=== PATIENT | male | born 1955 | race Caucasian/White ===

== ENCOUNTER 2024-10-08 13:21 | Inpatient (IN) | payer OTHER, MEDICARE ==
[~2024-10-08] VITALS: Ht 185.4 cm; Wt 140.0 kg
[2024-10-08] MEDS: DEXTROSE 50% SYRINGE 50 ML IV ONE (13:44)
--- NOTE | 2024-10-08 13:46 | ED.PDOC ---
Altered Mental Status HPI Comments 69 y.o male with PMH of liver cirrhosis, liver cancer and HTN, presents to the ED via EMS for an evaluation of altered mental status x 1 day. EMS reports family on scene reported patient has been weak/lethargic for one day, has had extreme difficulty ambulating, becomes short of breath with minimal exertion, and appears to be confused and slow to respond. His normal baseline is alert and oriented x 4 and ambulatory with walker. EMS reports patient was initially alert and oriented x 3 on their initial evaluation, however patient is unable to answer any questions at this time. EMS noted a blood glucose level of 56 on scene, administrated D10 but continued to drop with the lowest reading at 45 prior to ED arrival. Patient continues to receive D10 and blood glucose at bedside increased to 100. On scene, patient was also hypotensive at 72 systolic, was given IV fluids. Chief Complaint: ALOC Time Seen by MD: 13:31 Reviewed Notes: Nurses Notes, Compliance Examiner Notes, Medications, Allergies Allergies: Coded Allergies: NO KNOWN ALLERGIES (Unverified , 10/08/24) Information Source: Emergency Med Personnel Mode of Arrival: EMS Severity: Other Timing: Days (1) Duration: Since onset Prehospital treatment: 12 Lead EKG, Accucheck (56 and 45 ), Life Enrichment Manager, IVF, Treatment (D10 ) Quality: Decreased Alertness, Change in Behavior Recent: Other History of: Other Associated Signs and Symptoms: Other Past Medical History PAST MEDICAL HISTORY: HTN, Liver Past Medical History (Other): Liver CA Surgical History: Unobtainable Family History Family History: Unobtainable Social History Smoker: Non-Smoker Alcohol: Denies ETOH Use Drugs: Denies Drug Use Lives In: Home Unable to Obtain due to: Altered Mental Status Physical Exam General Appearance: Moderate Distress HEENT: Normal ENT Inspection, PERRL/EOMI Neck: Full Range of Motion, Normal Inspection, Supple Respiratory: Decreased Breath Sounds, Respiratory Distress Cardiovascular: Irregular, No JVD Breast Exam: Deferred Gastrointestinal: Non Tender, Soft Genitalia: Deferred Pelvic: Deferred Rectal: Deferred Extremities: Leg edema, Non-tender, Pedal edema Neurologic: Alert (Oriented x1), Other (Lethargic, no facial asymmetry, moves all extremities) Cerebellar Function: NOT DONE Reflexes: NOT DONE Skin: Dry, Pallor, Warm Lymphatic: NOT DONE EKG EKG : Comments AFib/flutter with underlying ventricular rate 90, QRS prolonged at 221, QTC prolonged at 672, left axis deviation, possible old inferior infarct, anteroseptal T inversion with other nonspecific T changes Was a procedure done? 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: Attending Physician Indication: Hypotension Room prepared for procedure: Yes National Service Officer performed hand hygien: Yes Maximal sterile barrier precau: Sterile gown, Sterlie gloves, Large sterlie drape Skin Preparation: Chlorhexidine gluconate Skin preparation completely dr: Yes Insertion site: Right, Femoral Central line catheter type: [id number] dialysis Number of lumens: 3 Central line exchanged over a: Yes Antiseptic ointment applied to: No Post Assessment: Proper placement Informed consent obtained: No (Procedure was emergent) Risks/benefits/alt described: No Intubation Indication: Respiratory Insufficiency, Altered Mental Status, Airway Protection Prep: Preoxygenation Pretreated with: Sedation (Etomidate IV) Medicated with: Succinylcholine (100mg), Other (Etomidate 20mg ) Intubation Approach: Orotracheal Intubation size: cm (Size 8 endotracheal tube secured at 24 cm at the lip) Informed consent obtained: No (Procedure was emergent) Risks/benefits/alt described: No (Emergent ) Differential Diagnosis (ALOC) Differential Diagnosis: Dehydration, Hypoglycemia, Encephalopathy, Hypoxemia, CVA, Mass Lesion, SAH, Drug Overdose, ETOH Intoxication, Heart Failure, Renal Failure, Other (Infection, sepsis, among others) X-Ray, Labs, Meds, VS Vital Signs Date Time Temp Pulse Resp B/P (MAP) Pulse Ox O2 Delivery O2 Flow Rate FiO2 10/08/24 21:45 80/46 10/08/24 21:15 93.4 62 17 74/40 (51) 97 93.4 10/08/24 21:10 93.2 61 16 76/37 (50) 97 93.2 10/08/24 21:05 93.2 61 17 79/36 (50) 98 93.2 10/08/24 21:00 92.3 72 13 75/39 (51) 98 92.3 10/08/24 20:55 93.2 62 16 75/38 (50) 98 93.2 10/08/24 20:55 93.2 62 16 75/38 (50) 98 93.2 10/08/24 20:50 93.2 68 15 77/40 (52) 97 93.2 10/08/24 20:46 75/42 10/08/24 20:45 93.0 62 15 73/41 (52) 93 93.0 10/08/24 20:40 93.0 15 73/41 (52) 93 93.0 10/08/24 20:35 93.0 16 71/41 (51) 93 93.0 10/08/24 20:30 93.0 16 70/39 (49) 93 93.0 10/08/24 20:30 70/39 10/08/24 20:25 92.8 16 66/37 (47) 93 92.8 10/08/24 20:20 92.8 65 15 72/40 (51) 93 92.8 10/08/24 20:15 92.3 17 71/39 (50) 93 92.3 10/08/24 20:10 92.7 65 16 67/40 (49) 92 92.7 10/08/24 20:05 92.7 66 16 67/39 (48) 92 92.7 10/08/24 20:02 68/95 10/08/24 20:00 64 10/08/24 20:00 92.7 64 16 68/35 (46) 89 92.7 10/08/24 19:55 92.7 63 16 69/36 (47) 90 92.7 10/08/24 19:50 92.7 62 16 66/38 (47) 82 92.7 10/08/24 19:49 60 16 82 100 10/08/24 19:45 92.7 97 16 70/29 (43) 97 92.7 10/08/24 19:40 92.7 62 83 68/39 (49) 83 92.7 10/08/24 19:35 92.5 60 16 66/34 (45) 82 92.5 10/08/24 19:35 68/36 10/08/24 19:33 68/34 10/08/24 19:30 92.5 59 68/36 (47) 78 92.5 10/08/24 19:25 92.5 59 66/37 (47) 75 92.5 10/08/24 19:20 92.5 58 66/37 (47) 77 92.5 10/08/24 19:18 75/37 10/08/24 19:15 92.5 75/37 (50) 92.5 10/08/24 19:15 75/40 10/08/24 19:10 92.3 104 16 75/40 (52) 92.3 10/08/24 19:08 68/40 10/08/24 19:05 92.3 60 16 68/40 (49) 92.3 10/08/24 19:00 92.3 59 16 77/36 (50) 92.3 10/08/24 18:55 92.3 62 16 75/37 (50) 92.3 10/08/24 18:40 92.3 128 16 86/43 (57) 92.3 10/08/24 18:35 78/40 10/08/24 18:33 78/40 10/08/24 18:30 80/44 10/08/24 18:25 92.3 150 16 75/32 (46) 92.3 10/08/24 18:25 75/32 10/08/24 18:20 84/42 10/08/24 18:18 87/43 10/08/24 18:15 87/43 10/08/24 18:10 92.3 122 16 95/48 (64) 92.3 10/08/24 18:08 92/40 10/08/24 18:08 92/40 10/08/24 18:01 62 16 66/38 (47) 79 100 10/08/24 17:58 68/38 10/08/24 17:55 68/38 10/08/24 17:55 92.3 16 68/38 (48) 92.3 10/08/24 17:50 68/38 10/08/24 17:48 58/40 10/08/24 17:40 92.3 46 16 58/40 (46) 83 92.3 10/08/24 17:40 58/40 10/08/24 17:38 86/42 10/08/24 17:38 86/42 11/9/24 17:38 86/42 10/08/24 17:38 86/42 10/08/24 17:36 0/0 10/08/24 17:36 0/0 10/08/24 17:36 0/0 10/08/24 17:36 0/0 10/08/24 17:28 97/43 10/08/24 17:25 92/42 10/08/24 17:25 92.3 62 16 92/42 (59) 88 92.3 10/08/24 17:15 89/41 10/08/24 17:10 92.5 64 16 84/34 (51) 89 92.5 10/08/24 17:10 84/34 10/08/24 17:10 84/34 10/08/24 16:55 70 16 103/46 (65) 90 10/08/24 16:50 106/47 10/08/24 16:40 87/42 10/08/24 16:40 76 18 87/42 (57) 91 10/08/24 16:30 74/41 10/08/24 16:25 56 18 74/41 (52) 92 10/08/24 16:25 99/44 10/08/24 16:20 74/41 10/08/24 16:15 89/42 10/08/24 16:10 63 17 88/47 (61) 92 10/08/24 16:10 88/47 10/08/24 16:10 89/42 10/08/24 16:02 92/37 10/08/24 15:55 55 17 91 10/08/24 15:50 87/39 10/08/24 15:40 89/66 10/08/24 15:40 68 18 89/66 (74) 92 10/08/24 15:35 75/46 10/08/24 15:30 76/29 10/08/24 15:25 47 18 92/47 (62) 92 10/08/24 15:25 92/47 10/08/24 15:25 92/47 10/08/24 15:23 65 20 98/65 97 50 10/08/24 15:15 101/44 10/08/24 15:14 65 20 95/48 (64) 97 50 10/08/24 15:10 76 23 106/49 (68) 92 10/08/24 15:05 105/41 10/08/24 14:55 105/52 10/08/24 14:55 73 14 105/52 (69) 96 10/08/24 14:45 92/46 10/08/24 14:45 92/46 10/08/24 14:40 55 25 89/41 (57) 94 10/08/24 14:25 77 22 92 10/08/24 14:18 90 10/08/24 14:10 64 20 98/48 (65) 92 10/08/24 13:55 55 12 95 Room Air* 0 21 10/08/24 13:55 55 12 95/48 (64) 95 10/08/24 13:30 97.2 63 24 91/51 (64) 91 10/08/24 13:28 132 Lab Test 10/08/24 22:04 10/08/24 18:20 10/08/24 17:35 10/08/24 17:19 Range/Units White Blood Count Pending Red Blood Count Pending Hemoglobin Pending Hematocrit Pending Mean Corpuscular Volume Pending Mean Corpuscular Hemoglobin Pending Mean Corpuscular Hemoglobin Concent Pending Red Cell Distribution Width Pending Platelet Count Pending Mean Platelet Volume Pending Neutrophils (%) (Auto) Pending Lymphocytes (%) (Auto) Pending Monocytes (%) (Auto) Pending Basophils (%) (Auto) Pending Neutrophils # (Auto) Pending Lymphocytes # (Auto) Pending Monocytes # (Auto) Pending Sodium Level Pending Potassium Level Pending Chloride Level Pending Carbon Dioxide Level Pending Anion Gap Pending Blood Urea Nitrogen Pending Creatinine Pending Glomerular Filtration Rate Calc Pending BUN/Creatinine Ratio Pending Serum Glucose Pending Calcium Level Pending Total Bilirubin Pending Aspartate Amino Transferase (AST) Pending Alanine Aminotransferase (ALT) Pending Alkaline Phosphatase Pending Total Protein Pending Albumin Pending Lactic Acid Level 11.4 *H 0.4-2.0 mmol/L POC Glucose 105 70-106 mg/dl Troponin I High Sensitivity 71 *H </=54 ng/L Test 10/08/24 16:59 10/08/24 16:50 10/08/24 16:30 10/08/24 16:09 Range/Units Urine Color Dark-yellow Yellow Urine Clarity Turbid H Clear Urine pH 5.0 5.0-9.0 Urine Specific [place] 1.024 1.001-1.035 Urine Protein 2+ H Negative Urine Ketones Negative Negative Urine Blood 3+ H Negative /uL Urine Nitrite Negative Negative Urine Bilirubin Negative Negative Urine Urobilinogen Normal Negative mg/dL Urine Leukocyte Esterase Negative Negative /uL Urine RBC 69 0 - 3 /hpf Urine WBC 7 0 - 3 /hpf Urine Squamous Epithelial Cells Few <5 /hpf Urine Amorphous Crystals Few None Seen /hpf Urine Bacteria None seen None Seen /hpf Urine Glucose Trace Normal mg/dL Urine Opiates Screen Neg NEGATIVE Urine Fentanyl Screen Neg NEGATIVE Urine Barbiturates Screen Neg NEGATIVE Urine Phencyclidine Screen Neg NEGATIVE Urine Amphetamines Screen Neg NEGATIVE Urine Benzodiazepines Screen Neg NEGATIVE Urine Cocaine Screen Neg NEGATIVE Urine Cannabinoids Screen Neg NEGATIVE POC Glucose 77 70-106 mg/dl Blood Gas Specimen Type Arterial Blood Gas Sample Site Left radial Blood Gas Patient Temperature 37.0 Arterial Blood Date Drawn [id number] Arterial Blood pH 6.901 *L 7.350-7.450 Arterial Blood Partial Pressure CO2 32.7 L 35.0-48.0 mmHg Arterial Blood Partial Pressure O2 93.6 83.0-108.0 mmHg Arterial Blood HCO3 6.3 L 21.0-28.0 mmol/L Arterial Blood Oxygen Saturation 88.3 L 94.0-98.0 % Arterial Blood Base Excess -25.5 L -2.0-3.0 mmol/L Arterial Blood Oxyhemoglobin 87.3 L 94.0-98.0 % Arterial Blood Carboxyhemoglobin 0.7 0.5-1.5 % Arterial Blood Methemoglobin 0.4 0.0-1.5 % Timur Test Modified Blood Gas Total Hemoglobin 10.80 L 13.5-17.5 g/dL Blood Gas Set Respiration Rate 16.0 Blood Gas Modality Vent - ac FiO2 % 50.0 Blood Gas Tidal Volume 600.0 Blood Gas PEEP or CPAP 5.0 Blood Gas Critical Value Read Back Yes Blood Gas Notified Whom Blood Gas Notified Time [id number] Blood Gas Notified By Repairer [employer] abel Sodium Level 135 L 136-145 mmol/L Potassium Level 7.7 *H 3.5-5.1 mmol/L Chloride Level 101 98-107 mmol/L Carbon Dioxide Level < 10 *L 20-31 mmol/L Anion Gap 24.69220 H 5-15 Blood Urea Nitrogen 111 *H 9-23 mg/dL Creatinine 9.04 H 0.700-1.30 mg/dL Glomerular Filtration Rate Calc 6 >90 mL/min BUN/Creatinine Ratio 12.3 10.0-20.0 Serum Glucose 80 74-106 mg/dL Lactic Acid Level 9.2 *H 0.4-2.0 mmol/L Calcium Level 8.8 8.7-10.4 mg/dL Total Bilirubin 3.6 H 0.2-1.0 mg/dL Aspartate Amino Transferase (AST) 2007 H 13-40 U/L Alanine Aminotransferase (ALT) 553 H 7-40 U/L Alkaline Phosphatase 102 46-116 U/L Troponin I High Sensitivity 54 </=54 ng/L Total Protein 8.3 H 5.7-8.2 g/dL Albumin 3.5 3.2-4.8 g/dL Plasma/Serum Blood Alcohol < 3.0 <10 mg/dL Test 10/08/24 14:17 10/08/24 14:14 10/08/24 13:38 10/08/24 13:29 Range/Units POC Glucose 29 *L 100 33 *L 70-106 mg/dl White Blood Count 3.5 L 4.4-10.8 10^3/uL Red Blood Count 3.29 L 4.5-5.90 10^6/uL Hemoglobin 9.4 L 13.5-17.5 g/dL Hematocrit 30.5 L 41.0-53.0 % Mean Corpuscular Volume 92.6 80.0-100.0 fL Mean Corpuscular Hemoglobin 28.6 28.0-32.0 pg Mean Corpuscular Hemoglobin Concent 30.9 L 32.0-36.0 g/dL Red Cell Distribution Width 25.3 H 11.8-14.3 % Platelet Count 103 L 140-450 10^3/uL Mean Platelet Volume 7.9 6.9-10.8 fL Neutrophils (%) (Auto) 37.0-80.0 % Lymphocytes (%) (Auto) 10.0-50.0 % Monocytes (%) (Auto) 0.0-12.0 % Basophils (%) (Auto) 0.0-2.0 % Neutrophils # (Auto) 1.6-8.6 10 ^3/uL Lymphocytes # (Auto) 0.4-5.4 10 ^3/uL Monocytes # (Auto) 0-1.3 10 ^3/uL Differential Total Cells Counted 100.0 100 Neutrophils % (Manual) 65 37.0-80.0 Band Neutrophils % (Manual) 10 Lymphocytes % (Manual) 19 10.0-50.0 Monocytes % (Manual) 6 0-12 Eosinophils % (Manual) 0 0-7 Basophils % (Manual) 0 0.0-2.0 Metamyelocytes % (manual) 0 Myelocytes % (Manual) 0 Promyelocytes % (Manual) 0 Blast Cells % (Manual) 0 Reactive Lymphocytes 0 Platelet Estimate Decreased Anisocytosis (manual) Slight Prothrombin Time 19.3 H 9.3-11.8 sec Prothrombin Time INR 1.91 H 0.9-1.15 Ammonia < 10 L 11-32 umol/L Troponin I High Sensitivity 51 </=54 ng/L B-Type Natriuretic Peptide 609.74 0-100 pg/mL Test 10/08/24 13:28 Range/Units POC Glucose 45 *L 70-106 mg/dl Current Medications Medications (Trade) Dose Ordered Sig/Kaley Route Start Time Stop Time Status Last Admin Albumin Human 100 ml @ 100 mls/hr ONCE ONCE IV 10/08/24 13:45 10/08/24 14:44 DC 10/08/24 14:12 Dextrose 250 ml @ 1,000 mls/hr ONCE ONCE IV 10/08/24 14:30 10/08/24 15:20 DC 10/08/24 16:21 Succinylcholine Chloride (Quelicin) 100 mg ONCE ONCE IV 10/08/24 14:45 10/08/24 14:46 DC 10/08/24 14:39 Etomidate 30 mg ONCE ONCE IV 10/08/24 14:45 10/08/24 14:46 DC 10/08/24 14:38 Dopamine HCl/ Dextrose 250 ml @ 21.375 mls/ hr [id number] ONCE IV 10/08/24 14:45 10/09/24 02:26 10/08/24 18:33 Propofol 100 ml @ 4.2 mls/hr [id number] IV 10/08/24 15:30 10/08/24 17:28 Dextrose 50 ml ONCE ONCE IV 10/08/24 15:30 10/08/24 15:31 DC 10/08/24 14:20 Midazolam HCl 50 ml @ 1 mls/hr Q24H IV 10/08/24 16:00 10/08/24 16:10 Norepinephrine Bitartrate 250 ml @ 3.75 mls/hr Q24H IV 10/08/24 16:00 10/08/24 20:30 Insulin Human Regular (InsuLIN R) 10 units ONCE ONCE IV 10/08/24 17:15 10/08/24 17:21 DC 10/08/24 18:06 Dextrose 50 ml ONCE ONCE IV 10/08/24 17:15 10/08/24 17:21 DC 10/08/24 17:59 Sodium Bicarbonate 100 ml ONCE ONCE IV 10/08/24 17:15 10/08/24 17:21 DC 10/08/24 17:54 Albuterol (Ventolin Medneb) 20 mg ONCE ONCE NEB 10/08/24 17:15 10/08/24 17:21 DC 10/08/24 18:01 Vancomycin HCl 200 ml @ 200 mls/hr ONCE ONCE IV 10/08/24 17:30 10/08/24 18:29 DC 10/08/24 18:11 Zirconium Oxide (Lokelma) 20 gm ONCE ONCE GT 10/08/24 17:30 10/08/24 17:31 DC 10/08/24 20:45 Phenylephrine HCl 250 ml @ 30 mls/hr Q8H20M IV 10/08/24 19:00 10/08/24 19:08 Sodium Chloride (Saline Lock Ns) 10 ml QSHIFT@10,22 IV 10/08/24 22:00 10/08/24 21:50 Epinephrine HCl 250 ml @ 7.5 mls/hr Q24H ONCE IV 10/08/24 19:30 10/09/24 19:29 10/08/24 20:02 Vasopressin 20 units/Sodium Chloride 100 ml @ 9 mls/hr Q11H7M IV 10/08/24 20:30 10/08/24 20:46 Sodium Bicarbonate 100 ml ONCE ONCE IV 10/08/24 20:30 10/08/24 20:31 DC 10/08/24 20:44 PROCEDURE(s): HWOCT - HEAD WITHOUT CONTRAST REASON: al ORDER NUMBER(s): [id number], ACCESSION NUMBER(s): [id number] EXAM: CT HEAD WITHOUT CONTRAST INDICATION: aloc TECHNIQUE: CT of the head without intravenous contrast. Radiation Dose Information: CT Dose: CTDI volume is 91.56 mGy. Dose-length product is 2475.87 mGy*cm The dose indicators for CT are the volume Computed Tomography (CT) Dose Index (CTDIvol) and the Dose Length Product (DLP), and are measured in units of mGy and mGy-cm, respectively. These indicators are not patient dose, but values generated from the CT scanner acquisition factors. The report includes radiation exposure data for exposures received during this examination. COMPARISON: None FINDINGS: There is no evidence of acute intracranial hemorrhage, extra-axial collection, mass effect, midline shift, herniation or hydrocephalus. There is mild sulcal and ventricular prominence. The giraldo-white differentiation is intact. Patchy periventricular and subcortical white matter hypoattenuation is nonspe cific but may be related to small vessel ischemic disease. The visualized paranasal sinuses are clear. Trace left mastoid effusion is noted. The surrounding soft tissues and osseous structures are unremarkable. IMPRESSION: 1. No acute intracranial abnormality. 2. Mild cerebral atrophy. EDURE(s): CXRP - CHEST PORTABLE REASON: aloc ORDER NUMBER(s): [id number], ACCESSION NUMBER(s): [id number] EXAM: XY CHEST PORTABLE TECHNIQUE: Single frontal chest radiograph CLINICAL HISTORY: aloc COMPARISON: None Findings/Impression: Frontal chest radiograph demonstrates no acute osseous or superficial soft tissue abnormalities. The trachea is midline. Borderline cardiomegaly. Multifocal patchy airspace opacities favored to reflect multifocal pneumonia. Recommend follow up to resolution. No pneumothorax or pleural effusions. EDURE(s): CXR2 - CHEST TWO VIEWS ROUTINE REASON: OG PLACEMENT ORDER NUMBER(s): [id number], ACCESSION NUMBER(s): [id number] XY CHEST TWO VIEWS ROUTINE, HISTORY: OG PLACEMENT COMPARISON: 10/08 None TECHNICAL DATA: 1 view of the chest was obtained. FINDINGS: Lines and tubes: ET in the mid thoracic trachea, OG in the stomach. Right arm PICC with tip in the RA. Cardiomediastinal silhouette: enlarged Pulmonary vasculature: prominent Lung expansion: low Lung airspace: multifocal patchy airspace opacities Lung interstitium: prominent Pleura: normal Pneumothorax: no Bones: Unremarkable Other: no IMPRESSION: ET in the mid thoracic trachea, OG in the stomach. Right arm PICC with tip in the RA. Similar lung aeration with multifocal patchy airspace opacities. EDURE(s): CXRP - CHEST PORTABLE REASON: S/P PICC LINE PLACEMENT, NG TUBE PLACEMENT, INTUBATION ORDER NUMBER(s): [id number], ACCESSION NUMBER(s): [id number] XY CHEST PORTABLE, HISTORY: S/P PICC LINE PLACEMENT, NG TUBE PLACEMENT, INTUBATION COMPARISON: XY CHEST PORTABLE on DOS: 10/08/24 XY CHEST PORTABLE on DOS: 10/08/24 TECHNICAL DATA: 1 view of the chest was obtained. FINDINGS: Lines and tubes: ET in the mid thoracic trachea, NG in the stomach. Right arm PICC with tip in the RA. Cardiomediastinal silhouette: enlarged Pulmonary vasculature: prominent Lung expansion: low Lung airspace: multifocal patchy airspace opacities Lung interstitium: prominent Pleura: normal Pneumothorax: no Bones: Unremarkable Other: no IMPRESSION: ET in the mid thoracic trachea, NG in the stomach. Right arm PICC with tip in the RA. Similar lung aeration with multifocal patchy airspace opacities. X-Ray, Labs, Meds, VS Comment 69-year-old male with a history of liver cirrhosis, liver CA and hypertension presenting with altered mental status, hypoglycemia, respiratory distress and hypotension. Vitals remarkable for BP 68/34, oxygen saturation 82% on 100% oxygen by mask Exam remarkable for confusion, lethargy, respiratory distress, diminished breath sounds and 2+ pitting edema in both lower extremities EKG AFib/flutter with ventricular rate of 90, prolonged intervals, anteroseptal T inversion with other nonspecific T changes Head CT unremarkable Chest x-ray Findings/Impression: Frontal chest radiograph demonstrates no acute osseous or superficial soft tissue abnormalities. The trachea is midline. Borderline cardiomegaly. Multifocal patchy airspace opacities favored to reflect multifocal pneumonia. Recommend follow up to resolution. No pneumothorax or pleural effusions. CBC remarkable for WBC 3.5, hemoglobin 9.4, hematocrit 30.5, platelets 103, CMP remarkable for sodium 135, potassium 7.7, CO2 less than 10, BUN 111, creatinine 9.04, anion gap 24, total bilirubin 3.6, AST 2007, ALT 553 Lactate 9.2 Alcohol, urine drug screen and 1st troponin negative PT 19.3, INR 1.91 ABG post intubation: PH 6.9, pCO2 32.7, PO2 93.6, oxygen saturation 88.3%, bicarb 6.3 Patient was intubated shortly after arrival. Please see procedure note for details. Patient received the following treatment in the ED: Albumin 25% 100 mL IV bolus, D50 50 mL IV, D10 IV continuous infusion, Zosyn 4.5 g IV, vancomycin 1 g IV, hyperkalemia protocol: regular insulin 10 units IV, D50 50 mL IV, sodium bicarb 50 mEq IV x2, calcium gluconate 1 g IV, Lokelma 20 g via NG tube. Patient required multiple IV pressors including dopamine, Levophed, phenylephrine, epinephrine and vasopressin IV. Patient continued to decline despite these efforts, and eventually became pulseless, CPR was initiated, however family arrived at bedside and stated they not want to continue CPR. CPR was paused at that point, then patient regained a palpable carotid pulse. Family was advised of the abnormal findings and the critical condition of the patient. They elected to continue with mechanical ventilation and IV medications as long as the patient has a pulse, however if the patient experiences another cardiac arrest, they requested we do not perform CPR/ACLS and allow natural . They do not want the patient to have dialysis. Patient will require ICU admission. Time of 1ST Reevaluation: 13:40 Reevaluation 1ST: Unchanged Time of 2ND Reevaluation: 22:30 Reevaluation 2ND: Worsened Patient Education/Counseling: Other Family Education/Counseling: No Family Present Sepsis Sepsis Reasesment Focused Exam Sepsis focused exam: focus exam completed, time: (2229) Departure 1 Departure Time of Disposition: 22:30 Impression: Primary Impression: Hypoglycemia Additional Impressions: Pneumonia Qualified Codes: J18.9 - Pneumonia, unspecified organism Sepsis Qualified Codes: A41.9 - Sepsis, unspecified organism; R65.21 - Severe sepsis with septic shock; N17.9 - Acute kidney failure, unspecified Renal failure Qualified Codes: N19 - Unspecified kidney failure Electrolyte imbalance Metabolic encephalopathy Liver failure Qualified Codes: K72.90 - Hepatic failure, unspecified without coma Disposition: ADMITTED INPATIENT Admit to: ICU Condition: Critical Critical Care Note Critical Care Time?: Yes (90 min-critical care time only) Critical care comment: Critical care time including multiple bedside re-evaluations, review of laboratory and imaging studies, and discussion of the case with the admitting provider. Patient is high risk for respiratory, hemodynamic, neurologic and/or metabolic decompensation. Stability Stability form required: No I personally scribed for SURYA BRADY MD ([facility] on 10/08/24 at 13: 46. Electronically submitted by Juliet Perales ([facility]). I personally scribed for SURYA BRADY MD ([email or web address]) on 10/08/24 at 16:08. Electronically submitted by Juliet Perales ([facility]). SURYA BRADY MD Oct 08, 2024 13:46
[2024-10-08 13:55] VITALS: PULSE 55; RESP 12; O2SAT 95
[2024-10-08] MEDS: ALBUMIN 25% 100 ML IV ONE (14:12)
[2024-10-08] MEDS: DEXTROSE (50%) 50ML SYRG IV ONE ×2 (14:20→17:59)
--- NOTE | 2024-10-08 14:24 | DVH ---
EXAM: XY CHEST PORTABLE TECHNIQUE: Single frontal chest radiograph CLINICAL HISTORY: aloc COMPARISON: None Findings/Impression: Frontal chest radiograph demonstrates no acute osseous or superficial soft tissue abnormalities. The trachea is midline. Borderline cardiomegaly. Multifocal patchy airspace opacities favored to reflect multifocal pneumonia. Recommend follow up to resolution. No pneumothorax or pleural effusions.
--- NOTE | 2024-10-08 14:26 | DVH ---
EXAM: CT HEAD WITHOUT CONTRAST INDICATION: aloc TECHNIQUE: CT of the head without intravenous contrast. Radiation Dose Information: CT Dose: CTDI volume is 91.56 mGy. Dose-length product is 2475.87 mGy*cm The dose indicators for CT are the volume Computed Tomography (CT) Dose Index (CTDIvol) and the Dose Length Product (DLP), and are measured in units of mGy and mGy-cm, respectively. These indicators are not patient dose, but values generated from the CT scanner acquisition factors. The report includes radiation exposure data for exposures received during this examination. COMPARISON: None FINDINGS: There is no evidence of acute intracranial hemorrhage, extra-axial collection, mass effect, midline s hift, herniation or hydrocephalus. There is mild sulcal and ventricular prominence. The giraldo-white differentiation is intact. Patchy periventricular and subcortical white matter hypoattenuation is nonspecific but may be related to small vessel ischemic disease. The visualized paranasal sinuses are clear. Trace left mastoid effusion is noted. The surrounding soft tissues and osseous structures are unremarkable. IMPRESSION: 1. No acute intracranial abnormality. 2. Mild cerebral atrophy.
[2024-10-08 14:33] LABS: Hemoglobin 9.4 g/dL (13.5-17.5); Platelet Count (auto) 103 10^3/uL (140-450); White Blood Cell 3.5 10^3/uL (4.4-10.8)
[2024-10-08 14:35] LABS: Hematocrit 30.5 % (41.0-53.0); Mean Corpuscular Hemoglobin 28.6 pg (28.0-32.0); Mean Corpuscular Hgb Conc. 30.9 g/dL (32.0-36.0); Mean Corpuscular Volume 92.6 fL (80.0-100.0); Red Blood Cells 3.29 10^6/uL (4.5-5.90); Red Cell Distribution Width 25.3 % (11.8-14.3)
[2024-10-08] MEDS: ETOMIDATE (2MG/ML) 20ML VIAL IV ONE ×2 (14:38→14:52)
[2024-10-08] MEDS: SUCCINYLCHOLINE CHLORIDE 20 MG/ML 10ML VIAL IV ONE ×2 (14:39→14:53)
[2024-10-08 14:41] LABS: Basophils % (manual) 0 (0.0-2.0); Blast Cells 0; Eosinophils % (manual) 0 (0-7); Metamyelocytes % 0; Myelocytes % 0; Promyelocytes % 0; Reactive Lymphocytes 0
[2024-10-08] MEDS: DOPamine 1600MCG/ML D5W 250 ML IV ONE ×3 (14:53→21:45)
[2024-10-08 15:12] LABS: Band Neutrophils % (manual) 10; Lymphocytes % (manual) 19 (10.0-50.0); Monocytes % (manual) 6 (0-12)
[2024-10-08 15:13] LABS: Anisocytosis Slight; Platelet Estimate Decreased
[2024-10-08] MEDS: PROPOFOL 100 ML IV ONE (15:15)
[2024-10-08 15:23] VITALS: BP 98/65; PULSE 65; RESP 20; O2SAT 97
[2024-10-08] MEDS: NOREPINEPHRINE 8 MG/250ML KIT 250 ML IV SCH (16:02)
[2024-10-08] MEDS: MIDAZOLAM DRIP 50 mg/50mL 50 ML IV SCH (16:10)
[2024-10-08] MEDS: DEXTROSE 10% 250 ML IV ONE (16:21)
[2024-10-08 16:50] LABS: Chloride 101 mmol/L (98-107); Sodium 135 mmol/L (136-145)
[2024-10-08 16:53] LABS: Anion Gap 24.00001 (5-15); Calcium 8.8 mg/dL (8.7-10.4)
[2024-10-08 16:58] LABS: Alkaline Phosphatase 102 U/L (46-116); BUN/Creatinine Ratio 12.3 (10.0-20.0); Glucose 80 mg/dL (74-106)
[2024-10-08 16:59] LABS: Blood Alcohol < 3.0 mg/dL (<10)
[2024-10-08 17:00] LABS: Alanine Aminotransferase 553 U/L (7-40); Albumin 3.5 g/dL (3.2-4.8); Bilirubin, Total 3.6 mg/dL (0.2-1.0); Total Protein 8.3 g/dL (5.7-8.2)
[2024-10-08 17:11] LABS: Aspartate Aminotransferase 2007 U/L (13-40)
[2024-10-08 17:12] LABS: Blood Urea Nitrogen 111 mg/dL (9-23); Carbon Dioxide < 10 mmol/L (20-31); Lactic Acid w/Reflex 9.2 mmol/L (0.4-2.0); Potassium 7.7 mmol/L (3.5-5.1)
[2024-10-08 17:18] LABS: Base Excess -25.5 mmol/L (-2.0-3.0)
[2024-10-08 17:28] LABS: Urine Bacteria None Seen /hpf (None Seen)
[2024-10-08] MEDS: PROPOFOL 100 ML IV SCH (17:28)
[2024-10-08] MEDS: SODIUM BICARB 8.4% 50Meq/50ml SYR Vial IV ONE ×2 (17:54→20:44)
[2024-10-08 17:56] LABS: INR 1.91 (0.9-1.15); Prothrombin Time 19.3 sec (9.3-11.8)
[2024-10-08 17:56] LABS: Amphetamine Screen, Urine Neg (NEGATIVE); Barbiturate Scree,Urine Neg (NEGATIVE); Benzodiazephine Screen, Urine Neg (NEGATIVE); Cocaine Screen, Urine Neg (NEGATIVE)
[2024-10-08 17:57] LABS: Cannabinoid Screen, Urine Neg (NEGATIVE); Opiate Scree,Urine Neg (NEGATIVE); Phencyclidine Screen, Urine Neg (NEGATIVE)
[2024-10-08] MEDS: ALBUTEROL SULF 2.5 MG/0.5ML(0.5%) NEB SOLN NEB ONE (18:01)
[2024-10-08 18:05] LABS: Urine Amorphous Crystal FEW /hpf (None Seen); Urine Blood 3+ /uL (Negative); Urine Clarity Turbid (Clear); Urine Color Dark-Yellow (Yellow); Urine Protein, UAD 2+ (Negative); Urine Specific Gravity 1.024 (1.001-1.035); Urine Urobilinogen Normal (Negative); Urine WBC 7 /hpf (0 - 3)
[2024-10-08] MEDS: InsuLIN REG 1unit/0.01ml Soln (100units/ml) IV ONE (18:06)
[2024-10-08] MEDS: VANCOMYCIN 1GM/200ML PREMIX 200 ML IV ONE (18:11)
[2024-10-08] MEDS: SODIUM ZIRCONIUM CYCL 10 GM PAK GT ONE (18:35)
[2024-10-08] MEDS: PHENYLEPHRINE IV 250 ML IV SCH (19:08)
[2024-10-08] MEDS: LIDOCAINE 1% (LOCAL ANESTH.) PF 5ml SDV ID ONE (19:48)
--- NOTE | 2024-10-08 19:58 | DVH ---
XY CHEST TWO VIEWS ROUTINE, HISTORY: OG PLACEMENT COMPARISON: 10/08 None TECHNICAL DATA: 1 view of the chest was obtained. FINDINGS: Lines and tubes: ET in the mid thoracic trachea, OG in the stomach. Right arm PICC with tip in the RA . Cardiomediastinal silhouette: enlarged Pulmonary vasculature: prominent Lung expansion: low Lung airspace: multifocal patchy airspace opacities Lung interstitium: prominent Pleura: normal Pneumothorax: no Bones: Unremarkable Other: no IMPRESSION: ET in the mid thoracic trachea, OG in the stomach. Right arm PICC with tip in the RA. Similar lung aeration with multifocal patchy airspace opacities.
[2024-10-08] MEDS: EPINEPHrine HCL 250 ML IV ONE (20:02)
--- NOTE | 2024-10-08 20:17 | DVH ---
XY CHEST PORTABLE, HISTORY: S/P PICC LINE PLACEMENT, NG TUBE PLACEMENT, INTUBATION COMPARISON: XY CHEST PORTABLE on DOS: 10/08/24 XY CHEST PORTABLE on DOS: 10/08/24 TECHNICAL DATA: 1 view of the chest was obtained. FINDINGS: Lines and tubes: ET in the mid thoracic trachea, NG in the stomach. Right arm PICC with tip in the RA . Cardiomediastinal silhouette: enlarged Pulmonary vasculature: prominent Lung expansion: low Lung airspace: multifocal patchy airspace opacities Lung interstitium: prominent Pleura: normal Pneumothorax: no Bones: Unremarkable Other: no IMPRESSION: ET in the mid thoracic trachea, NG in the stomach. Right arm PICC with tip in the RA. Similar lung aeration with multifocal patchy airspace opacities.
[2024-10-08] MEDS: VASOPRESSIN 20 UNIT/ML ONE (20:45)
[2024-10-08] MEDS ORDERED: VASOPRESSIN 20 UNITS in SODIUM CHL 0.9% 99 ML IV SCH (20:45)
[2024-10-08] MEDS: VASOPRESSIN 20 UNITS in SODIUM CHL 0.9% 99 ML IV SCH (20:46)
[2024-10-08] MEDS ORDERED: VANCOMYCIN PER PHARMACY 0 MG IV SCH (21:45)
[2024-10-08] MEDS ORDERED: IBUPROFEN 100MG/5ML ORAL SUSP 100 MG/5 ML UD GT PRN (21:45)
[2024-10-08] MEDS ORDERED: ONDANSETRON HCL 4 MG/2 ML VIAL IV PRN (21:45)
[2024-10-08] MEDS: SODIUM CHLOR 0.9% PF (SALINE LOCK) 10ML VIAL/SYR IV SCH (21:50)
[2024-10-08 22:41] LABS: Alanine Aminotransferase 559 U/L (7-40); Alkaline Phosphatase 102 U/L (46-116); Anion Gap 25.00001 (5-15); BUN/Creatinine Ratio 9.5 (10.0-20.0); Calcium 8.6 mg/dL (8.7-10.4); Chloride 98 mmol/L (98-107); Glucose 134 mg/dL (74-106); Sodium 133 mmol/L (136-145)
[2024-10-08 22:42] LABS: Albumin 3.4 g/dL (3.2-4.8); Bilirubin, Total 4.1 mg/dL (0.2-1.0); Total Protein 7.8 g/dL (5.7-8.2)
[2024-10-08 22:52] LABS: Aspartate Aminotransferase 2338 U/L (13-40)
[2024-10-08 23:14] LABS: Blood Urea Nitrogen 88 mg/dL (9-23); Carbon Dioxide < 10 mmol/L (20-31); Potassium 8.3 mmol/L (3.5-5.1)
[2024-10-08 23:20] LABS: Hemoglobin 9.6 g/dL (13.5-17.5)
[2024-10-08 23:21] LABS: Hematocrit 33.5 % (41.0-53.0); Mean Corpuscular Hemoglobin 28.8 pg (28.0-32.0); Mean Corpuscular Hgb Conc. 28.8 g/dL (32.0-36.0); Mean Corpuscular Volume 100.2 fL (80.0-100.0); Platelet Count (auto) 143 10^3/uL (140-450); Red Blood Cells 3.34 10^6/uL (4.5-5.90); White Blood Cell 6.6 10^3/uL (4.4-10.8)
[2024-10-08 23:24] LABS: Red Cell Distribution Width 27.7 % (11.8-14.3)
[2024-10-08] MEDS: AZITHROMYCIN 500MG/ 250ML 250 ML IV ONE (23:24)
[2024-10-08] MEDS: FAMOTIDINE (10MG/ML) 2ML VL IV SCH (23:25)
[2024-10-09] MEDS ORDERED: EPINEPHrine HCL 250 ML IV SCH
[2024-10-09 00:07] LABS: Anisocytosis Slight; Macrocytosis Slight
[2024-10-09 00:08] LABS: Large Platelets FEW; Platelet Estimate Adequa; Target Cell FEW
[2024-10-09 00:14] LABS: Band Neutrophils % (manual) 6; Basophils % (manual) 0 (0.0-2.0); Blast Cells 0; Eosinophils % (manual) 0 (0-7); Lymphocytes % (manual) 25 (10.0-50.0); Metamyelocytes % 0; Monocytes % (manual) 7 (0-12); Myelocytes % 0; Promyelocytes % 0; Reactive Lymphocytes 0
[2024-10-09 00:15] LABS: Smudge Cells 5 /100 WBC
[2024-10-09] MEDS ORDERED: MORPHINE SULFATE INJ 2 MG/ml SYRG IV PRN (00:15)
[2024-10-09] MEDS ORDERED: NITROGLYCERIN 0.4 MG SL TAB SL PRN (00:15)
[2024-10-09] MEDS: SODIUM ZIRCONIUM CYCL 10 GM PAK PO ONE (00:23)
[2024-10-09] MEDS: DOPamine 1600MCG/ML D5W 250 ML IV ONE (00:30)
--- NOTE | 2024-10-09 01:27 | DVHHP2 ---
History of Present Illness Reason for Visit: Acute respiratory failure History of Present Illness The patient is a 69-year-old male with past medical history of liver cirrhosis, hypertension and liver cancer presented to [facility] ED for evaluation of altered level of consciousness. Family reported patient has been weak/lethargic for 1 day, has had extreme difficulty ambulating, becomes short of breath with minimal exertion, and appears to be confused and slow to respond. His normal baseline was alert and oriented x 4 and ambulatory with walker. Patient was in critical condition and was intubated shortly after arrival. Patient was seen and evaluated in the ED, laboratory data shows WBC 3.5, hemoglobin 9.4, hematocrit 30.5, platelets 103, sodium 135, potassium 7.7, BUN 111, creatinine 9.04, glucose 80, troponin 51, total bilirubin 3.6, lactic acid 9.2, AST 2007, ALT 553, protein 8.3, ammonia <10, blood pressure 75/42, heart rate 60, temperature 92.3 F, O2 saturation 92 % on ventilator. Head CT showed no acute intracranial abnormality, mild cerebral atrophy. Chest x-ray revealing multifocal patchy airspace opacities favored to reflect multifocal pneumonia, no pneumothorax or pleural effusions. Patient was started on IV antibiotic regimen azithromycin, please see medication orders section in the computer. On my assessment, family members at bedside, patient remains fully intubated, no diaphoresis, no vomiting, no fever. Patient was admitted for further evaluation and medical management. Past Medical History HTN, Liver cirrhosis Liver cancer Past Surgical History Denies all surgeries Family History Reviewed, noncontributory to the management of this case. Past Social History The patient lives at home, denies smoking, alcohol or illicit drugs abuse. Review of Systems Constitutional: Yes: Chills, Weakness, Other (Fatigue); No: Fever, Sweats, Malaise Eyes: No: Pain, Vision change, Conjunctivae inflammation, Eyelid inflammation, Other, Redness ENT: No: Ear pain, Ear discharge, Nose pain, Nose discharge, Nose congestion, Mouth pain, Mouth swelling, Throat pain, Throat swelling, Other Respiratory: Shortness of breath, SOB with excertion, Other (SOB at rest); No: Cough, Dry, Wheezing, Hemoptysis, Pleuritic Pain, Sputum, Wheezing Cardiovascular: No: Chest Pain, Palpitations, Orthopnea, Paroxysmal Noc. Dyspnea, Edema, Lt Headedness, Other Gastrointestinal: No: Nausea, Vomiting, Abdominal Pain, Diarrhea, Constipation, Melena, Hematochezia, Other Genitourinary: No Dysuria, No Frequency, No Incontinence, No Hematuria, No Retention; Other (Adams catheter in place) Musculoskeletal: No: other, neck pain, shoulder pain, arm pain, back pain, hand pain, leg pain, foot pain Skin: No: Rash, Lesions, Jaundice, Bruising, Other Neurological: Weakness; No: Numbness, Incoordination, Change in speech, Confusion, Seizures, Other Allergies: Coded Allergies: NO KNOWN ALLERGIES (Unverified , 10/08/24) Medications Current Medications Medications Dose Ordered Sig/Kaley Route Start Time Stop Time Status Last Admin Dose Admin Propofol 100 ml @ 4.2 mls/hr [id number] IV 10/08/24 15:30 10/08/24 17:28 37.8 MLS/HR Midazolam HCl 50 ml @ 1 mls/hr Q24H IV 10/08/24 16:00 10/08/24 16:10 1 MLS/HR Norepinephrine Bitartrate 250 ml @ 3.75 mls/hr Q24H IV 10/08/24 16:00 10/08/24 20:30 56.25 MLS/HR Phenylephrine HCl 250 ml @ 30 mls/hr Q8H20M IV 10/08/24 19:00 10/08/24 19:08 30 MLS/HR Sodium Chloride 10 ml QSHIFT@10,22 IV 10/08/24 22:00 10/08/24 21:50 10 ML Vasopressin 20 units/Sodium Chloride 100 ml @ 9 mls/hr Q11H7M IV 10/08/24 20:30 10/08/24 20:46 9 MLS/HR Vasopressin 20 units/Sodium Chloride 100 ml @ 9 mls/hr Q11H7M IV 10/08/24 20:45 Cancel Famotidine 20 mg DAILY IV 10/08/24 22:00 10/08/24 23:25 20 MG Ibuprofen 600 mg Q6HP PRN GT 10/08/24 21:45 Azithromycin 250 ml @ 125 mls/hr DAILY IV 10/09/24 10:00 Vancomycin HCl 0 ml @ 0 mls/hr UD IV 10/08/24 21:45 UNV Ondansetron HCl 4 mg Q4HP PRN IV 10/08/24 21:45 Nitroglycerin 0.4 mg Q5MINP PRN SL 10/09/24 00:15 UNV Morphine Sulfate 2 mg Q30M PRN IV 10/09/24 00:15 UNV Exam Vital Signs Vital Signs Date Time Temp Pulse Resp B/P (MAP) Pulse Ox O2 Delivery O2 Flow Rate FiO2 10/08/24 21:45 80/46 10/08/24 21:25 53 16 96 100 10/08/24 21:15 93.4 93.4 10/08/24 13:55 Room Air* 0 General Appearance: Other (Fully intubated) HEENT: Atraumatic, EOMI, Mucous membr. moist/pink Respiratory: Normal air movement, Other (Diminished breath sounds) Cardiovascular: Normal S1, Normal S2, No murmurs, Other (Irregular heart rate ) Abdominal: Soft, No tenderness Extremities: No clubbing, No cyanosis, No edema, Normal pulses, No tenderness/swelling Skin: No rashes, No breakdown, No significant lesion Neuro: Other (Altered level of consciousness) Psych/Mental Status: Mood NL, Other (Altered mental status) Labs/Xrays Labs Test 10/08/24 23:35 10/08/24 23:02 10/08/24 22:04 10/08/24 18:20 Range/Units POC Glucose 128 H 70-106 mg/dl White Blood Count 6.6 # 4.4-10.8 10^3/uL Red Blood Count 3.34 L 4.5-5.90 10^6/uL Hemoglobin 9.6 L 13.5-17.5 g/dL Hematocrit 33.5 L 41.0-53.0 % Mean Corpuscular Volume 100.2 #H 80.0-100.0 fL Mean Corpuscular Hemoglobin 28.8 28.0-32.0 pg Mean Corpuscular Hemoglobin Concent 28.8 L 32.0-36.0 g/dL Red Cell Distribution Width 27.7 H 11.8-14.3 % Platelet Count 143 140-450 10^3/uL Mean Platelet Volume 7.2 6.9-10.8 fL Neutrophils (%) (Auto) 5.0 L 37.0-80.0 % Lymphocytes (%) (Auto) 73.6 H 10.0-50.0 % Monocytes (%) (Auto) 21.3 H 0.0-12.0 % Eosinophils (%) (Auto) 0.1 0.0-7.0 % Basophils (%) (Auto) 0.0 0.0-2.0 % Neutrophils # (Auto) 0.3 L 1.6-8.6 10 ^3/uL Lymphocytes # (Auto) 4.9 0.4-5.4 10 ^3/uL Monocytes # (Auto) 1.4 H 0-1.3 10 ^3/uL Eosinophils # (Auto) 0 0-0.8 10 ^3/uL Basophils # (Auto) 0 0-0.2 10 ^3/uL Nucleated Red Blood Cells 1.3 % Sodium Level 133 L 136-145 mmol/L Potassium Level 8.3 *H 3.5-5.1 mmol/L Chloride Level 98 98-107 mmol/L Carbon Dioxide Level < 10 *L 20-31 mmol/L Anion Gap 25.57638 H 5-15 Blood Urea Nitrogen 88 #*H 9-23 mg/dL Creatinine 9.23 H 0.700-1.30 mg/dL Glomerular Filtration Rate Calc 6 >90 mL/min BUN/Creatinine Ratio 9.5 L 10.0-20.0 Serum Glucose 134 H 74-106 mg/dL Calcium Level 8.6 L 8.7-10.4 mg/dL Total Bilirubin 4.1 H 0.2-1.0 mg/dL Aspartate Amino Transferase (AST) 2338 H 13-40 U/L Alanine Aminotransferase (ALT) 559 H 7-40 U/L Alkaline Phosphatase 102 46-116 U/L Total Protein 7.8 5.7-8.2 g/dL Albumin 3.4 3.2-4.8 g/dL Lactic Acid Level 11.4 *H 0.4-2.0 mmol/L Test 10/08/24 17:19 10/08/24 16:59 10/08/24 16:30 10/08/24 16:09 Range/Units Troponin I High Sensitivity 71 *H </=54 ng/L Urine Color Dark-yellow Yellow Urine Clarity Turbid H Clear Urine pH 5.0 5.0-9.0 Urine Specific [place] 1.024 1.001-1.035 Urine Protein 2+ H Negative Urine Ketones Negative Negative Urine Blood 3+ H Negative /uL Urine Nitrite Negative Negative Urine Bilirubin Negative Negative Urine Urobilinogen Normal Negative mg/dL Urine Leukocyte Esterase Negative Negative /uL Urine RBC 69 0 - 3 /hpf Urine WBC 7 0 - 3 /hpf Urine Squamous Epithelial Cells Few <5 /hpf Urine Amorphous Crystals Few None Seen /hpf Urine Bacteria None seen None Seen /hpf Urine Glucose Trace Normal mg/dL Urine Opiates Screen Neg NEGATIVE Urine Fentanyl Screen Neg NEGATIVE Urine Barbiturates Screen Neg NEGATIVE Urine Phencyclidine Screen Neg NEGATIVE Urine Amphetamines Screen Neg NEGATIVE Urine Benzodiazepines Screen Neg NEGATIVE Urine Cocaine Screen Neg NEGATIVE Urine Cannabinoids Screen Neg NEGATIVE Blood Gas Specimen Type Arterial Blood Gas Sample Site Left radial Blood Gas Patient Temperature 37.0 Arterial Blood Date Drawn [id number] Arterial Blood pH 6.901 *L 7.350-7.450 Arterial Blood Partial Pressure CO2 32.7 L 35.0-48.0 mmHg Arterial Blood Partial Pressure O2 93.6 83.0-108.0 mmHg Arterial Blood HCO3 6.3 L 21.0-28.0 mmol/L Arterial Blood Oxygen Saturation 88.3 L 94.0-98.0 % Arterial Blood Base Excess -25.5 L -2.0-3.0 mmol/L Arterial Blood Oxyhemoglobin 87.3 L 94.0-98.0 % Arterial Blood Carboxyhemoglobin 0.7 0.5-1.5 % Arterial Blood Methemoglobin 0.4 0.0-1.5 % Timur Test Modified Blood Gas Total Hemoglobin 10.80 L 13.5-17.5 g/dL Blood Gas Set Respiration Rate 16.0 Blood Gas Modality Vent - ac FiO2 % 50.0 Blood Gas Tidal Volume 600.0 Blood Gas PEEP or CPAP 5.0 Blood Gas Critical Value Read Back Yes Blood Gas Notified Whom Blood Gas Notified Time [id number] Blood Gas Notified By Card Room Manager abel Plasma/Serum Blood Alcohol < 3.0 <10 mg/dL Test 10/08/24 14:14 Range/Units Differential Total Cells Counted 100.0 100 Neutrophils % (Manual) 65 37.0-80.0 Band Neutrophils % (Manual) 10 Lymphocytes % (Manual) 19 10.0-50.0 Monocytes % (Manual) 6 0-12 Eosinophils % (Manual) 0 0-7 Basophils % (Manual) 0 0.0-2.0 Metamyelocytes % (manual) 0 Myelocytes % (Manual) 0 Promyelocytes % (Manual) 0 Blast Cells % (Manual) 0 Reactive Lymphocytes 0 Anisocytosis (manual) Slight Prothrombin Time 19.3 H 9.3-11.8 sec Prothrombin Time INR 1.91 H 0.9-1.15 Ammonia < 10 L 11-32 umol/L B-Type Natriuretic Peptide 609.74 0-100 pg/mL PATIENT: WANDA ROA ACCT: [id number] UNIT: [id number] : 1955 LOC: ER ROOM / BED: / AGE / SEX: 69 / M ADM STATUS: REG ER SERVICE 1341 ORDERING PHYSICIAN: SURYA BRADY MD PROCEDURE(s): HWOCT - HEAD WITHOUT CONTRAST REASON: aloc ORDER NUMBER(s): [id number], ACCESSION NUMBER(s): [id number] EXAM: CT HEAD WITHOUT CONTRAST INDICATION: aloc TECHNIQUE: CT of the head without intravenous contrast. Radiation Dose Information: CT Dose: CTDI volume is 91.56 mGy. Dose-length product is 2475.87 mGy*cm The dose indicators for CT are the volume Computed Tomography (CT) Dose Index (CTDIvol) and the Dose Length Product (DLP), and are measured in units of mGy and mGy-cm, respectively. These indicators are not patient dose, but values generated from the CT scanner acquisition factors. The report includes radiation exposure data for exposures received during this examination. COMPARISON: None FINDINGS: There is no evidence of acute intracranial hemorrhage, extra-axial collection, mass effect, midline shift, herniation or hydrocephalus. There is mild sulcal and ventricular prominence. The giraldo-white differentiation is intact. Patchy periventricular and subcortical white matter hypoattenuation is nonspecific but may be related to small vessel ischemic disease. The visualized paranasal sinuses are clear. Trace left mastoid effusion is noted. The surrounding soft tissues and osseous structures are unremarkable. IMPRESSION: 1. No acute intracranial abnormality. 2. Mild cerebral atrophy. ORDERING PHYSICIAN: SURYA BRADY MD PROCEDURE(s): CXRP - CHEST PORTABLE REASON: aloc ORDER NUMBER(s): [id number], ACCESSION NUMBER(s): [id number] EXAM: XY CHEST PORTABLE TECHNIQUE: Single frontal chest radiograph CLINICAL HISTORY: aloc COMPARISON: None Findings/Impression: Frontal chest radiograph demonstrates no acute osseous or superficial soft tissue abnormalities. The trachea is midline. Borderline cardiomegaly. Multifocal patchy airspace opacities favored to reflect multifocal pneumonia. Recommend follow up to resolution. No pneumothorax or pleural effusions. ORDERING PHYSICIAN: SURYA BRADY MD PROCEDURE(s): CXR2 - CHEST TWO VIEWS ROUTINE REASON: OG PLACEMENT ORDER NUMBER(s): [id number], ACCESSION NUMBER(s): [id number] XY CHEST TWO VIEWS ROUTINE, HISTORY: OG PLACEMENT COMPARISON: 10/08 None TECHNICAL DATA: 1 view of the chest was obtained. FINDINGS: Lines and tubes: ET in the mid thoracic trachea, OG in the stomach. Right arm PICC with tip in the RA. Cardiomediastinal silhouette: enlarged Pulmonary vasculature: prominent Lung expansion: low Lung airspace: multifocal patchy airspace opacities Lung interstitium: prominent Pleura: normal Pneumothorax: no Bones: Unremarkable Other: no IMPRESSION: ET in the mid thoracic trachea, OG in the stomach. Right arm PICC with tip in the RA. Similar lung aeration with multifocal patchy airspace opacities. ORDERING PHYSICIAN: SURYA BRADY MD PROCEDURE(s): CXRP - CHEST PORTABLE REASON: S/P PICC LINE PLACEMENT, NG TUBE PLACEMENT, INTUBATION ORDER NUMBER(s): [id number], ACCESSION NUMBER(s): [id number] XY CHEST PORTABLE, HISTORY: S/P PICC LINE PLACEMENT, NG TUBE PLACEMENT, INTUBATION COMPARISON: XY CHEST PORTABLE on DOS: 10/08/24 XY CHEST PORTABLE on DOS: 10/08/24 TECHNICAL DATA: 1 view of the chest was obtained. FINDINGS: Lines and tubes: ET in the mid thoracic trachea, NG in the stomach. Right arm PICC with tip in the RA. Cardiomediastinal silhouette: enlarged Pulmonary vasculature: prominent Lung expansion: low Lung airspace: multifocal patchy airspace opacities Lung interstitium: prominent Pleura: normal Pneumothorax: no Bones: Unremarkable Other: no IMPRESSION: ET in the mid thoracic trachea, NG in the stomach. Right arm PICC with tip in the RA. Similar lung aeration with multifocal patchy airspace opacities. Assessment/Plan Assessment/Plan Acute respiratory failure Pneumonia, unspecified organism Sepsis, unspecified organism Severe sepsis with septic shock Hypoglycemia Acute kidney failure, unspecified Unspecified kidney failure Electrolyte imbalance Generalized weakness Metabolic encephalopathy Hepatic failure, unspecified without coma Plan 1. Admit to intensive care unit 2. Breathing treatment 3. Pain control management 4. IV antibiotic management 5. Management of fluids and electrolytes 6. Consultation for Nephrology/GI 7. Diagnostic test abdomen/pelvis CT 8. DVT prophylaxis-on SCDs 9. Repeat labs CBC, CMP in a.m. 10. Home medication reviewed and reconciled 11. Continue with current medical management 12. Treatment plan discussed with /family and RN. Family/ verbalized understanding. Plan discussed with: Patient, Other (RN) My Orders Orders - BISI VALDIVIA DNP Procedure Category Date Status Time *Dr. Chandu Elam CONS 10/08/24 Transmitted -[place] 21:37 Famotidine Injection PHA 10/08/24 In Process (Pepcid Injection) 22:00 Ibuprofen 100mg/5 Ml PHA 10/08/24 In Process Oral Susp (Motrin 1 21:45 * Gi D[facility] Promotional Demonstrator CONS 10/08/24 Transmitted 21:37 Complete Blood Count LAB 10/08/24 In Process 21:37 Azithromycin 500mg/ PHA 10/09/24 In Process 250ml (Zithromax 50 10:00 Vancomycin Per PHA 10/08/24 Pending Pharmacy 21:45 Allergies [facility] 10/08/24 In Process 21:37 Oxygen Per Hour RT 10/08/24 Transmitted 21:37 Ondansetron Hcl PHA 10/08/24 In Process (Zofran) 21:45 Fall Risk Precautions [facility] 10/08/[address] 21:37 Complete Blood Count LAB 10/09/24 Logged 04:00 Comprehensive LAB 10/09/24 Logged Metabolic Panel 04:00 Npo (Nothing By DIET 10/09/24 Transmitted Mouth) Diet Breakfast Condition: Serious [facility] 10/08/24 In Process 21:37 Sequential [facility] 10/08/24 In Process Compression Device Rbc Morphology LAB 10/08/24 In Process 23:02 Admit ADMIT 10/09/24 Transmitted 00:02 Nitroglycerin PHA 10/09/24 Logged Sublingual (Ntrostat 00:15 Morphine Sulfate PHA 10/09/24 Logged Injection 00:15 Notify Of Changes [facility] 10/09/24 In Process From Base 00:02 Family Service Assistant For [facility] 10/09/24 In Process 24 Hours 00:02 Emergency Dysrhythmia [facility] 10/09/24 In Process Protocol 00:02 Rhythm Strips Once [facility] 10/09/24 In Process Every Shift 00:02 Oxygen By Nasal RT 10/09/24 Transmitted Cannula 00:02 Problem List: (1) Metabolic encephalopathy (2) Electrolyte imbalance (3) Hypoglycemia (4) Severe sepsis with septic shock (5) Acute respiratory failure (6) Acute kidney failure, unspecified (7) Sepsis, unspecified organism (8) Pneumonia, unspecified organism (9) Generalized weakness (10) Hepatic failure, unspecified without coma (11) Unspecified kidney failure Date of Service: Oct 09, 2024 Billing Provider: BISI VALDIVIA DNP Common Visit Codes: [id number] INP/OBS CARE (HIGH) BISI VALDIVIA DNP Oct 09, 2024 01:27
[2024-10-09 01:30] VITALS: PULSE 51; RESP 20; TEMP 95.9; O2SAT 82
[2024-10-09] MEDS: EPINEPHrine HCL 250 ML IV ONE (01:38)
[2024-10-09 02:09] VITALS: BP 54/36
--- NOTE | 2024-10-09 08:44 | ECG ---
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
--- NOTE | 2024-10-09 09:18 | DVHINCON2 ---
Date of service: Oct 09, 2024 Referring Physician PEDRO Post Reason for Consultation Ventilator management, acute hypoxic respiratory failure This note reflects my encounter prior to patient demise. History of Present Illness 69-year-old man history of liver cirrhosis, hypertension, liver cancer who presented with acute metabolic encephalopathy. Patient has been lethargic for one day. He had been having difficulty ambulating. He was having shortness of breath at rest and with minimal exertion. Patient appeared very lethargic. ER report. He was in critical condition of the emergency department required emergent intubation and placement on mechanical ventilation. His chest x-ray demonstrated multifocal patchy opacities likely multifocal pneumonia. He was initiated on IV antibiotics. History is obtained from EMR, and PEDRO Morales per patient. Pulmonary consultation is called due to acute hypoxic respiratory failure on mechanical ventilator management. Review of systems: Unable to obtain due to patient's critical condition. Past medical history: Hypertension, liver cirrhosis, liver cancer Past surgical history: None mentioned in prior surgeries. Medications: Reviewed Allergies: No known drug allergies. Family history: No family history of premature CAD. No family history of lung disease Social history: Nonsmoker. No alcohol or illicit drug use. Allergies: Coded Allergies: NO KNOWN ALLERGIES (Unverified , 10/08/24) Current Medications Current Medications Medications (Trade) Dose Ordered Sig/Kaley Route PRN Reason Start Time Stop Time Status Last Admin Propofol 100 ml @ 4.2 mls/hr [id number] IV 10/08/24 15:30 10/08/24 17:28 Midazolam HCl 50 ml @ 1 mls/hr Q24H IV 10/08/24 16:00 10/08/24 16:10 Norepinephrine Bitartrate 250 ml @ 3.75 mls/hr Q24H IV 10/08/24 16:00 10/09/24 02:09 Phenylephrine HCl 250 ml @ 30 mls/hr Q8H20M IV 10/08/24 19:00 10/08/24 19:08 Sodium Chloride (Saline Lock Ns) 10 ml QSHIFT@10,22 IV 10/08/24 22:00 10/08/24 21:50 Vasopressin 20 units/Sodium Chloride 100 ml @ 9 mls/hr Q11H7M IV 10/08/24 20:30 10/08/24 20:46 Vasopressin 20 units/Sodium Chloride 100 ml @ 9 mls/hr Q11H7M IV 10/08/24 20:45 Cancel Famotidine (Pepcid Injection) 20 mg DAILY IV 10/08/24 22:00 10/08/24 23:25 Ibuprofen (MOTRIN 100MG/5 mL ORAL SUSP) 600 mg Q6HP PRN GT TEMP GREATER THAN 100.4 10/08/24 21:45 Azithromycin 250 ml @ 125 mls/hr DAILY IV 10/09/24 10:00 Vancomycin HCl 0 ml @ 0 mls/hr UD IV 10/08/24 21:45 UNV Ondansetron HCl (Zofran) 4 mg Q4HP PRN IV NAUSEA / VOMITING 10/08/24 21:45 Nitroglycerin (Ntrostat Sublingual) 0.4 mg Q5MINP PRN SL FOR CHEST PAIN 10/09/24 00:15 Morphine Sulfate 2 mg Q30M PRN IV FOR CHEST PAIN 10/09/24 00:15 Epinephrine HCl 250 ml @ 7.5 mls/hr Q24H IV 10/09/24 00:00 Vital Signs Vital Signs Date Time Temp Pulse Resp B/P (MAP) Pulse Ox O2 Delivery O2 Flow Rate FiO2 10/09/24 02:09 54/36 10/09/24 01:30 95.9 51 20 82 95.9 10/09/24 00:41 100 10/08/24 13:55 Room Air* 0 Physical Exam Gen.: Patient lying in bed in medical ICU. Sedated, intubated on mechanical ventilator. Head: Normocephalic, atraumatic. Eyes: PERRLA. Ears: Normal external anatomy. Throat: Endotracheal tube and orogastric tube in place. Neck: Supple, trachea midline. Chest: Transmitted breath sounds bilaterally. Decreased air entry bilaterally. No wheezing. Bibasilar crackles. Cardio vascular: Positive S1, positive S2. Regular rate and rhythm. Abdomen: Positive bowel sounds in all 4 quadrants. Soft, nontender, nondistended. : Adams in place. Normal external genitalia. Rectal: Deferred Skin: Warm, dry. Intact. Extremities: 2+ radial pulses bilaterally. No lower extremity edema. Neuro: Sedated. Labs/Diagnostic Data Labs Test 10/08/24 23:35 10/08/24 23:02 10/08/24 22:04 10/08/24 18:20 Range/Units POC Glucose 128 H 70-106 mg/dl White Blood Count 6.6 # 4.4-10.8 10^3/uL Red Blood Count 3.34 L 4.5-5.90 10^6/uL Hemoglobin 9.6 L 13.5-17.5 g/dL Hematocrit 33.5 L 41.0-53.0 % Mean Corpuscular Volume 100.2 #H 80.0-100.0 fL Mean Corpuscular Hemoglobin 28.8 28.0-32.0 pg Mean Corpuscular Hemoglobin Concent 28.8 L 32.0-36.0 g/dL Red Cell Distribution Width 27.7 H 11.8-14.3 % Platelet Count 143 140-450 10^3/uL Mean Platelet Volume 7.2 6.9-10.8 fL Neutrophils (%) (Auto) 37.0-80.0 % Lymphocytes (%) (Auto) 10.0-50.0 % Monocytes (%) (Auto) 0.0-12.0 % Eosinophils (%) (Auto) 0.0-7.0 % Basophils (%) (Auto) 0.0-2.0 % Neutrophils # (Auto) 1.6-8.6 10 ^3/uL Lymphocytes # (Auto) 0.4-5.4 10 ^3/uL Monocytes # (Auto) 0-1.3 10 ^3/uL Eosinophils # (Auto) 0-0.8 10 ^3/uL Basophils # (Auto) 0-0.2 10 ^3/uL Differential Total Cells Counted 100.0 100 Neutrophils % (Manual) 62 37.0-80.0 Band Neutrophils % (Manual) 6 Lymphocytes % (Manual) 25 10.0-50.0 Monocytes % (Manual) 7 0-12 Eosinophils % (Manual) 0 0-7 Basophils % (Manual) 0 0.0-2.0 Metamyelocytes % (manual) 0 Myelocytes % (Manual) 0 Promyelocytes % (Manual) 0 Blast Cells % (Manual) 0 Nucleated Red Blood Cells 2.0 % Reactive Lymphocytes 0 Smudge Cells 5 /100 WBC Platelet Estimate [place] Large Platelets Few Anisocytosis (manual) Slight Macrocytosis Slight Target Cells Few Mindi Cells Few Sodium Level 133 L 136-145 mmol/L Potassium Level 8.3 *H 3.5-5.1 mmol/L Chloride Level 98 98-107 mmol/L Carbon Dioxide Level < 10 *L 20-31 mmol/L Anion Gap 25.04166 H 5-15 Blood Urea Nitrogen 88 #*H 9-23 mg/dL Creatinine 9.23 H 0.700-1.30 mg/dL Glomerular Filtration Rate Calc 6 >90 mL/min BUN/Creatinine Ratio 9.5 L 10.0-20.0 Serum Glucose 134 H 74-106 mg/dL Calcium Level 8.6 L 8.7-10.4 mg/dL Total Bilirubin 4.1 H 0.2-1.0 mg/dL Aspartate Amino Transferase (AST) 2338 H 13-40 U/L Alanine Aminotransferase (ALT) 559 H 7-40 U/L Alkaline Phosphatase 102 46-116 U/L Total Protein 7.8 5.7-8.2 g/dL Albumin 3.4 3.2-4.8 g/dL Lactic Acid Level 11.4 *H 0.4-2.0 mmol/L Test 10/08/24 17:19 10/08/24 16:59 10/08/24 16:30 10/08/24 16:09 Range/Units Troponin I High Sensitivity 71 *H </=54 ng/L Urine Color Dark-yellow Yellow Urine Clarity Turbid H Clear Urine pH 5.0 5.0-9.0 Urine Specific [place] 1.024 1.001-1.035 Urine Protein 2+ H Negative Urine Ketones Negative Negative Urine Blood 3+ H Negative /uL Urine Nitrite Negative Negative Urine Bilirubin Negative Negative Urine Urobilinogen Normal Negative mg/dL Urine Leukocyte Esterase Negative Negative /uL Urine RBC 69 0 - 3 /hpf Urine WBC 7 0 - 3 /hpf Urine Squamous Epithelial Cells Few <5 /hpf Urine Amorphous Crystals Few None Seen /hpf Urine Bacteria None seen None Seen /hpf Urine Glucose Trace Normal mg/dL Urine Opiates Screen Neg NEGATIVE Urine Fentanyl Screen Neg NEGATIVE Urine Barbiturates Screen Neg NEGATIVE Urine Phencyclidine Screen Neg NEGATIVE Urine Amphetamines Screen Neg NEGATIVE Urine Benzodiazepines Screen Neg NEGATIVE Urine Cocaine Screen Neg NEGATIVE Urine Cannabinoids Screen Neg NEGATIVE Blood Gas Specimen Type Arterial Blood Gas Sample Site Left radial Blood Gas Patient Temperature 37.0 Arterial Blood Date Drawn [id number] Arterial Blood pH 6.901 *L 7.350-7.450 Arterial Blood Partial Pressure CO2 32.7 L 35.0-48.0 mmHg Arterial Blood Partial Pressure O2 93.6 83.0-108.0 mmHg Arterial Blood HCO3 6.3 L 21.0-28.0 mmol/L Arterial Blood Oxygen Saturation 88.3 L 94.0-98.0 % Arterial Blood Base Excess -25.5 L -2.0-3.0 mmol/L Arterial Blood Oxyhemoglobin 87.3 L 94.0-98.0 % Arterial Blood Carboxyhemoglobin 0.7 0.5-1.5 % Arterial Blood Methemoglobin 0.4 0.0-1.5 % Timur Test Modified Blood Gas Total Hemoglobin 10.80 L 13.5-17.5 g/dL Blood Gas Set Respiration Rate 16.0 Blood Gas Modality Vent - ac FiO2 % 50.0 Blood Gas Tidal Volume 600.0 Blood Gas PEEP or CPAP 5.0 Blood Gas Critical Value Read Back Yes Blood Gas Notified Whom Blood Gas Notified Time [id number] Blood Gas Notified By Auto Dealer abel Plasma/Serum Blood Alcohol < 3.0 <10 mg/dL Test 10/08/24 14:14 Range/Units Prothrombin Time 19.3 H 9.3-11.8 sec Prothrombin Time INR 1.91 H 0.9-1.15 Ammonia < 10 L 11-32 umol/L B-Type Natriuretic Peptide 609.74 0-100 pg/mL Assessment Impression: Acute hypoxic respiratory failure On mechanical ventilator Multifocal pneumonia, likely Gram-negative Septic shock Hypoglycemia Acute kidney injury Electrolyte imbalances Generalized weakness Acute Metabolic encephalopathy Cirrhosis Liver cancer Morbid obesity with a BMI of 40.7 Hyperkalemia Metabolic acidosis Lactic acidosis Anemia s/p cardiac arrest Plan: s/p intubation on mechanical ventilator Head CT demonstrates no acute intracranial abnormality. CXR image and report reviewed. Devices in place. Pulmonary vascular congestion and multifocal patchy airspace opacities. No pneumothorax. No pleural effusion. ABG reviewed. Severe acidemia secondary to metabolic acidosis. On assist control with a respiratory rate of 16, tidal volume 600, peep of five, FiO2 of 100%. Vent settings adjusted due to hypoxemia and to improve ventilation. Increase Peep to 8 Increase RR to 20 Titrate FIO2 to keep O2 saturation above 92%. VAP bundle Daily ABG and CXR while intubated. Sedate for ventilatory synchrony On multiple pressors for hemodynamic support. On epinephrine drip, Levophed drip, Kirby-Synephrine drip, dopamine drip. Titrate to keep MAP above 65 mmHg/SBP above 90 mmHg. Continue antibiotics. F/u cultures. Monitor renal function due to Acute kidney injury. Monitor electrolytes. Supplement as necessary. F/u Nephrology recommendations. Accucheks, ISS. Morbid obesity, complicates all care. GI/DVT prophylaxis. Condition: Critical, high likelihood of demise given multiple comorbidities and age. Prognosis: Poor given multiple comorbidities. Rest of plan per hospitalist and other consultants. A total of 35 minutes of critical care time was spent reviewing the patient record, examining the patient, making a diagnostic and therapeutic plan, discussing this plan with the medical personnel, following up on diagnostic studies and following the patient for clinical stability excluding any and all procedures. At least 50% of this time was spent in direct, [id number] contact. Thank you PEDRO Post/Dr Masters for allowing me to participate in this patient's care. Further recommendations will depend on patient's clinical course. Please do not hesitate to contact me if you have any questions or concerns. This medical document was created using an electronic medical record system with [employer] dictation system. Although this document has been carefully reviewed, there may still be some phonetic and typographical errors. These areas are purely typographical due to imperfections of the software programs, and do not reflect any compromise in the patient's medical care. Plan discussed with: Other (SENIOR BUSINESS CONSULTANT) RAMIN HEATON MD Oct 09, 2024 09:18
[2024-10-09] MEDS ORDERED: AZITHROMYCIN 500MG/ 250ML 250 ML IV SCH (10:00)
--- NOTE | 2024-10-10 13:41 | ECG ---
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
== END 2024-10-09 02:15 | DRG 871 ==
LOC: EDBD 13:21 → ER 13:21 → OVERFLOW 10-09 00:02
PROVIDERS: ADMIT Nurse Practitioner Family; ATTEND Nurse Practitioner Family
PROC: 0BH17EZ Insertion of Endotracheal Airway into Trachea, Via Natural or Artificial Opening (ICD-10-PCS; principal; 2024-10-08)
PROC: 06HY33Z Insertion of Infusion Device into Lower Vein, Percutaneous Approach (ICD-10-PCS; 2024-10-08)
PROC: 02H633Z Insertion of Infusion Device into Right Atrium, Percutaneous Approach (ICD-10-PCS; 2024-10-08)
PROC: B548ZZA Ultrasonography of Superior Vena Cava, Guidance (ICD-10-PCS; 2024-10-08)
DX: A41.9 Sepsis, unspecified organism (principal); G93.41 Metabolic encephalopathy; R65.21 Severe sepsis with septic shock; J96.01 Acute respiratory failure with hypoxia; J15.69 Pneumonia due to other Gram-negative bacteria; N17.9 Acute kidney failure, unspecified; Z68.41 Body mass index [BMI] 40.0-44.9, adult; E87.20 Acidosis, unspecified; K74.60 Unspecified cirrhosis of liver; I10 Essential (primary) hypertension; K72.90 Hepatic failure, unspecified without coma; E16.2 Hypoglycemia, unspecified; E66.01 Morbid (severe) obesity due to excess calories; E87.5 Hyperkalemia; D64.9 Anemia, unspecified; Z85.05 Personal history of malignant neoplasm of liver; Z86.74 Personal history of sudden cardiac arrest
CPT/HCPCS: 31500; 36415; 36556; 36569; 36600; 70450; 71045; 71046; 80053; 80307; 80320; 81001; 82140; 82805; 82962; 83605; 83880; 84484; 85007; 85025; 85027; 85610; 87070; 87205; 93005; 94002; 96365; 96375; 99291; 99292; G0378; J0171; J0330; J1815; J2704; J3490; P9047